=== PATIENT | female | born 1975 | race Caucasian/White ===

== ENCOUNTER 2018-10-02 09:00 | Emergency (ER) | payer MEDICAID ==
[~2018-10-02] VITALS: Ht 170.2 cm; Wt 94.3 kg
[2018-10-02 09:03] VITALS: BP 122/89
[2018-10-02] MEDS ORDERED: SERTRALINE HCL100 MG PO (09:10)
[2018-10-02] MEDS ORDERED: REXULTI4 MG PO (09:10)
[2018-10-02] MEDS ORDERED: AMBIEN10 M1 ORAL (09:10)
[2018-10-02] MEDS ORDERED: ATORVASTATIN CA40 MG ORAL (09:10)
[2018-10-02] MEDS ORDERED: WELLBUTRIN XL150 MG ORAL (09:10)
[2018-10-02] MEDS ORDERED: ATARAX25 MG ORAL (09:10)
--- NOTE | 2018-10-02 09:17 | NUR ---
ED Nurse Note: bilateral feet pain, increased pain with walking for the past 1 year; reports no injury.
[2018-10-02] MEDS ORDERED: VOLTAREN100 G1 TP (09:26)
[2018-10-02 09:30] VITALS: BP 128/68
--- NOTE | 2018-10-02 09:32 | NUR ---
ED Nurse Note:Homeless Discharge: Patient is being discharged from medical care. Awake, alert and oriented x4. After care instructions, including referral to community resources were given. Patient verbalized understanding of After care instructions. All medical devices such as ID band were removed. Patient ambulated out with all personal belongings with steady gait.
--- NOTE | 2018-10-03 14:39 | Emergency Room Report ---
History of Present Illness General Chief Complaint: Pain Source: Patient Present Illness Allergies: Coded Allergies: No Known Allergies (Unverified , 10/02/18) Patient History Last Menstrual Period: 08/28/2018 Reviewed Nursing Documentation: PMH: Agreed; PSxH: Agreed Nursing Documentation-PMH Past Medical History: No History, Except For History Of Psychiatric Problem: Yes - Anxiety, depression, schizophrenia Review of Systems All Other Systems: negative except mentioned in HPI Physical Exam Vital Signs Date Time Temp Pulse Resp B/P (MAP) Pulse Ox O2 Delivery O2 Flow Rate FiO2 10/02/18 09:03 98.1 86 15 122/89 94 Room Air Sp02 EP Interpretation: reviewed, normal General Appearance: normal inspection, well appearing, no apparent distress, alert, GCS 15, non-toxic Head: atraumatic ENT: normal ENT inspection, hearing grossly normal, normal voice Neck: normal inspection, full range of motion, supple, no bony tend Respiratory: normal inspection, lungs clear, normal breath sounds, no respiratory distress, no retraction, no wheezing Cardiovascular #1: regular rate, rhythm, no edema Gastrointestinal: normal inspection, normal bowel sounds, non tender, soft, no guarding, no hernia Genitourinary: no CVA tenderness Musculoskeletal: normal inspection, back normal, normal range of motion Neurologic: normal inspection, alert, responsive, speech normal Psychiatric: normal inspection, judgement/insight normal, mood/affect normal Skin: normal inspection, normal color, no rash Medical Decision Making Diagnostic Impression: Primary Impression: Pain Last Vital Signs Date Time Temp Pulse Resp B/P (MAP) Pulse Ox O2 Delivery O2 Flow Rate FiO2 10/02/18 09:30 98.1 86 16 128/68 96 Room Air Disposition: HOME, SELF-CARE Condition: Stable Scripts Diclofenac Sodium (VOLTAREN) 100 Gm Gel..gram. 5 GM TP DAILY, #100 GM Prov: Ryan Camara MD 10/02/18 Referrals: [facility],REFERRING (PCP) Patient Instructions: Arthritis Ryan Camara MD Oct 03, 2018 14:39
== END 2018-10-02 09:33 | disposition home or self-care (01) ==
LOC: EMR 09:25
DX: M25.572 Pain in left ankle and joints of left foot (principal); M25.571 Pain in right ankle and joints of right foot
CPT/HCPCS: 99282